=== PATIENT | female | born 1955 | race Hispanic/Latino ===

== ENCOUNTER 2018-08-30 20:47 | Emergency (ER) | payer BC ==
--- OUTSIDE RECORDS SUMMARY | 2018-08-30 20:50 | XMS REPORT ---
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
--- OUTSIDE RECORDS SUMMARY | 2018-08-30 20:50 | XMS REPORT ---
:1955 Author Organization [employer] Care Team Providers Name Role Phone Nichelle Chatman Provider Role Unavailable Allergies No Known Allergies Problems Problem Type Condition Code Onset Dates Condition Status Problem Hematochezia K92.1 Active Problem Family history of diabetes mellitus Z83.3 Active Problem Gastro-esophageal reflux disease K21.9 Active without esophagitis Problem Abnormal mammogram of left breast R92.8 [...]
--- OUTSIDE RECORDS SUMMARY | 2018-08-30 20:50 | XMS REPORT ---
:1955 Author Organization [employer]Works Care Team Providers Name Role Phone Nichelle Chatman Provider Role Unavailable Allergies, Adverse Reactions, Alerts Substance Reaction Event Type Iodine hives Drug Allergy Problems Problem Type Condition Code Onset Dates [...] E66.9 Active Problem History of transient ischemic Z86.73 Active attack Problem Hyperlipidemia E78.5 Active Assessment Swelling of lower extremity M79.89 Active Assessment History of DVT (deep vein Z86.718 Active thrombosis) Assessment Strep pharyngitis J02.0 Active Medications Medication Code Code Instructions Start End Status Dosage System Date Date Lipitor [facility] 58380931360 10 Active 1 EACH ONCE A DAY ORALLY Aspirin Adult [facility] [address]-14 Active not Low Dose defined Multivitamin [facility] 34253032285 - Orally Jul 13, Active not Adults 2018 defined Flonase [facility] 97707975221 50 MCG/ACT Active 2 spray in Nasally Once a each day nostril Amoxicillin [facility] 29804031455 875 MG Orally Mar 04, Mar 11, Active 1 tablet every 12 hrs 2017 2017 Lisinopril [facility] 96451466801 10 MG Active 1 EACH ONCE A DAY ORALLY Naproxen [facility] 70871476422 500 Orally Active 1 tablet every 12 hrs with food or milk as needed Results Name Result Date Reference Range Unit Abnormality Flag Rapid Strep FLU TEST ----B Neg [id number] ----A Neg [id number] Summary Purpose eClinicalWorks Submission
--- OUTSIDE RECORDS SUMMARY | 2018-08-30 20:50 | XMS REPORT ---
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
--- OUTSIDE RECORDS SUMMARY | 2018-08-30 20:50 | XMS REPORT ---
:1955 Author Organization [employer]ClinicalWorks Care Team Providers Name Role Phone Yesenia Chatmany Provider Role Unavailable Allergies, Adverse Reactions, Alerts Substance Reaction Event Type Iodine hives Drug Allergy Problems Problem Type Condition Code Onset Dates Condition Status Problem Gastro-esophageal reflux disease K21.9 Active without esophagitis Problem Hematochezia K92.1 Active Assessment Abnormal mammogram of left breast R92.8 Active Assessment Tenosynovitis of hand M65.9 Active Problem Osteoarthritis of spine with M47.22 Active radiculopathy, cervical region Problem History of transient ischemic attack Z86.73 Active Problem Abnormal mammogram of left breast R92.8 Active Problem Obesity E66.9 Active Problem Family history of diabetes mellitus Z83.3 Active Problem Hyperlipidemia E78.5 Active Problem Hypertension I10 Active Medications Medication Code Code Instructions Start End Status Dosage System Date Date Lisinopril [facility] 36614504385 10 MG Active 1 EACH ONCE A DAY ORALLY Aspirin Adult [facility] [address]-32 Active not Low Dose defined Lipitor [facility] 65498577070 10 Active 1 EACH ONCE A DAY ORALLY Lisinopril [facility] 89322417744 10 Active 1 EACH ONCE A DAY ORALLY Flonase [facility] 47897324828 50 MCG/ACT Active 2 spray in Nasally Once a each day nostril Multivitamin [facility] 32530049397 - Orally Jul 13, Active not Adults 2018 defined Lipitor [facility] 74252291237 10 MG Active 1 EACH ONCE A DAY ORALLY Naproxen ND 22192598804 500 MG Orally Feb 01Feb Active 1 tablet every 12 hrs 2017 30, with food 2018 or milk as needed Results No Known Results Summary Purpose eClinicalWorks Submission
--- OUTSIDE RECORDS SUMMARY | 2018-08-30 20:50 | XMS REPORT ---
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 Active radiculopathy, cervical region Problem Hyperlipidemia E78.5 Active Problem Hypertension I10 Active Problem Gastro-esophageal reflux disease K21.9 Active without esophagitis Problem Hematochezia K92.1 Active Medications Medication Code Code Instructions Start End Date Status Dosage System Date Lipitor [facility] 14818314060 10 MG Active 1 EACH ONCE A DAY ORALLY Aspirin Adult [facility] [address]-61 Active not Low Dose defined Multivitamin [facility] 25941507300 - Orally Jul 13, Active not Adults 2018 defined Lisinopril [facility] 25670698797 10 MG Active 1 EACH ONCE A DAY ORALLY Flonase [facility] 59863983397 50 MCG/ACT Active 2 spray Nasally Once a in each day nostril Etodolac [facility] 00110055851 200 MG Orally September Active 1 capsule every 8 hrs 2017 as needed with food Results Name Result Date Reference Range Unit Abnormality Flag X ray : Cervical spine w/obliques XR THORACIC SPINE 2 VIEWS Summary Purpose eClinicalWorks Submission
--- OUTSIDE RECORDS SUMMARY | 2018-08-30 20:50 | XMS REPORT ---
:1955 Author Organization eClinicalWorks Care Team Providers Name Role Phone Nichelle Chatman Provider Role Unavailable Allergies No Known Allergies Problems Problem Type Condition Code Onset Dates Condition Status Problem Hematochezia K92.1 Active Problem Family history of diabetes mellitus Z83.3 Active Problem Gastro-esophageal reflux disease K21.9 Active without esophagitis Assessment Abnormal finding on mammography R92.8 Active [...]
--- OUTSIDE RECORDS SUMMARY | 2018-08-30 20:50 | XMS REPORT ---
:1955 Author Organization eClinicalWorks Care Team Providers Name Role Phone Nihcelle Chatman Provider Role Unavailable Allergies No Known Allergies Problems Problem Type Condition Code Onset Dates Condition Status Problem Obesity E66.9 Active Problem Abnormal mammogram [...] Medications Results No Known Results Summary Purpose amSTATZinicalMinubo Submission
[2018-08-30] MEDS ORDERED: KETOROLAC 30 MG/ML INJ ONE (21:26)
[2018-08-30 21:49] LABS: Absolute Lymphocytes (CBC) 3.2 K/uL (0.7-4.9); Absolute Monocytes 0.7 K/uL (0.1-1.3); Absolute Neutrophil 4.4 K/uL (1.8-8.0); Basophils % 0.5 % (0-1.3); Eosinophils % 1.8 % (0-4.4); Hematocrit 40.1 % (36.0-45.0); Lymphocytes % 37.2 % (15.3-44.8); MPV 9.7 fL (7.6-11.3); Monocytes % 8.5 % (3.3-12.3); Protime INR 0.96; RBC Red Blood Cell Count 4.31 M/uL (3.86-4.86)
[2018-08-30 22:06] LABS: ALT/SGPT 29 U/L (12-78); AST/SGOT 24 U/L (15-37); Alkaline Phosphatase 92 U/L (45-117); BUN Blood Urea Nitrogen 16 mg/dL (7-18); Bicarbonate 31 mmol/L (21-32); Bilirubin Direct < 0.1 mg/dL (0-0.2); Bilirubin Total 0.3 mg/dL (0.2-1.0); Glucose Level 86 mg/dL (74-106); NT PRO-BNP 64 pg/mL (<125); Potassium 4.1 mmol/L (3.5-5.1); Protein, Total 7.5 g/dL (6.4-8.2); Sodium Level 144 mmol/L (136-145); Troponin (Emerg Dept Use Only) < 0.02 ng/mL (0.0-0.045)
--- NOTE | 2018-08-30 22:57 | ER ---
Nurse's Notes [facility] Name: Joan Atkins Age: 62 yrs Sex: Female : 1955 Arrival Date: 08/30/2018 Time: 20:50 Bed 5 Private MD: Diagnosis: Atypical Chest pain;Pain in left shoulder Presentation: 08/30 20:53 Presenting complaint: Patient states: "My arm has been hurting all day and it hurts in aj1 my chest and my back sometimes. Its been hurting for a couple of days, but today it is worse than before" Patient reports pain the the left arm that radiates to her chest and back. Patient also reports headache, denies SOB, nausea, palpitations. Transition of care: patient was not received from another setting of care. Onset of symptoms was August 28, 2018. Risk Assessment: Do you want to hurt yourself or someone else? Patient reports no desire to harm self or others. Initial Sepsis Screen: Does the patient meet any 2 criteria? No. Patient's initial sepsis screen is negative. Does the patient have a suspected source of infection? No. Patient's initial sepsis screen is negative. Care prior to arrival: None. 20:53 Method Of Arrival: Ambulatory aj1 20:53 Acuity: SOO 3 aj1 Triage Assessment: 20:57 Headache History: Denies prior headaches. General: Appears in no apparent distress. aj1 uncomfortable, Behavior is calm, cooperative, appropriate for age. Pain: Complains of pain in left arm Pain radiates to back and chest Pain currently is 9 out of 10 on a pain scale. Quality of pain is described as sharp, Pain began 2-3 days ago. Is intermittent, Also complains of no other associated symptoms. Neuro: Level of Consciousness is awake, alert, obeys commands, Oriented to person, place, time, situation. Cardiovascular: Reports chest pain, Denies nausea, palpitations, shortness of breath, Patient's skin is warm and dry. Respiratory: Airway is patent Respiratory effort is even, unlabored, Respiratory pattern is regular, symmetrical. Historical: - Allergies: 20:57 Iodine; aj1 - Home Meds: 20:57 atorvastatin oral oral [Active]; Lisinopril Oral [Active]; Aspirin Oral [Active]; aj1 - PMHx: 20:57 Hyperlipidemia; Hypertension; aj1 - PSHx: 20:57 Knee surgery; cataract surgery; aj1 - Immunization history:: Flu vaccine is up to date. - Social history:: Smoking status: Patient/guardian denies using tobacco. - Ebola Screening: : Patient denies travel to an Ebola-affected area in the 21 days before illness onset. Screenin:27 Abuse screen: Denies threats or abuse. Denies injuries from another. Nutritional rr5 screening: No deficits noted. Tuberculosis screening: No symptoms or risk factors identified. Fall Risk IV access (20 points). Total [place] Fall Scale indicates No Risk (0-24 pts). Assessment: 21:10 General: Appears in no apparent distress. uncomfortable, Behavior is calm, cooperative, rr5 appropriate for age. Pain: Complains of pain in chest Pain radiates to left arm Pain currently is 8 out of 10 on a pain scale. Quality of pain is described as aching, Pain began gradually, Is intermittent. 21:10 Neuro: Level of Consciousness is awake, alert, obeys commands, Oriented to person, rr5 place, time, situation, Appropriate for age. Cardiovascular: Reports chest pain, Capillary refill < 3 seconds Patient's skin is warm and dry. Respiratory: Airway is patent Respiratory effort is even, unlabored, Respiratory pattern is regular, symmetrical. GI: No signs and/or symptoms were reported involving the gastrointestinal system. : No signs and/or symptoms were reported regarding the genitourinary system. EENT: No signs and/or symptoms were reported regarding the EENT system. Derm: Skin temperature is warm. Musculoskeletal: Capillary refill < 3 seconds, Range of motion: intact in all extremities. 22:00 Reassessment: Patient appears in no apparent distress at this time. Patient is alert, rr5 oriented x 3, equal unlabored respirations, skin warm/dry/pink. Patient states feeling better. Patient states symptoms have improved. 23:05 Reassessment: Patient appears in no apparent distress at this time. Patient is alert, rr5 oriented x 3, equal unlabored respirations, skin warm/dry/pink. discharge instruction given and intrsucted without complaints made. pain score of 1/10 Patient states feeling better. Patient states symptoms have improved. Vital Signs: 20:57 BP 154 / 86; Pulse 88; Resp 18; Temp 97.8; Pulse Ox 98% on R/A; Height 5 ft. 5 in. aj1 (165.10 cm) (R); Pain 9/10; 20:57 Weight 76.2 kg (R); aj1 21:30 BP 135 / 71; Pulse 80; Resp 17; Pulse Ox 99% ; rr5 22:30 BP 119 / 71; Pulse 71; Resp 17; Pulse Ox 99% ; rr5 23:05 BP 116 / 71; Pulse 75; Resp 16; Pulse Ox 99% ; Pain 1/10; rr5 20:57 Body Mass Index 27.96 (76.20 kg, 165.10 cm) aj1 ED Course: 20:50 Patient arrived in ED. mr 20:56 Triage completed. aj1 20:57 Arm band placed on Patient placed in an exam room. aj1 21:00 Patient has correct armband on for positive identification. Placed in gown. Bed in low rr5 position. Call light in reach. Side rails up X2. camelid fiber sorter on. Pulse ox on. NIBP on. 21:02 Stoney Polanco PA is PHCP. jr8 21:02 Timothy Kaur MD is Attending Physician. jr8 21:20 XRAY Chest (1 view) In Process Unspecified. EDMS 21:20 Inserted saline lock: 22 gauge in right forearm, using aseptic technique. Blood rr5 collected. 21:26 Trey Mejia, MAXIMINO is Primary Nurse. rr5 23:17 No provider procedures requiring assistance completed. IV discontinued, intact, rr5 bleeding controlled, No redness/swelling at site. Pressure dressing applied. Administered Medications: 21:20 Drug: TORadol 30 mg Route: IVP; Site: right forearm; rr5 23:10 Follow up: Response: No adverse reaction; Marked relief of symptoms rr5 Outcome: 22:56 Discharge ordered by . jr8 23:17 Discharged to home ambulatory. rr5 23:17 Condition: stable 23:17 Discharge instructions given to patient, Instructed on discharge instructions, follow up and referral plans. medication usage, Demonstrated understanding of instructions, follow-up care, medications, Prescriptions given X 2. 23:18 Patient left the ED. rr5 Signatures: Dispatcher [employer] EDAZ Rhianna Bolaños RN RN aj1 SantnaaBelén mr Stoney Polanco PA PA jr8 Mejia, Trey, RN RN rr5
--- NOTE | 2018-08-30 22:57 | EDPHYS ---
Physician Documentation [facility] Name: Joan Atkins Age: 62 yrs Sex: Female : 1955 Arrival Date: 08/30/2018 Time: 20:50 Bed 5 Private MD: ED Physician Timothy Kaur HPI: 08/30 21:32 This 62 yrs old Female presents to ER via Ambulatory with complaints of Arm jr8 Pain, Headache. 21:32 Patient stated that she started to have left arm pain radiating down to chest and back jr8 for the past 2 days. No relief at home with OTC medications. Has headache now as well. Denies fevers or shortness of breath. Denies trauma . Severity of symptoms: At their worst the symptoms were moderate in the emergency department the symptoms are unchanged. The patient has not experienced similar symptoms in the past. The patient has not recently seen a physician. Historical: - Allergies: 20:57 Iodine; aj1 - Home Meds: 20:57 atorvastatin oral oral [Active]; Lisinopril Oral [Active]; Aspirin Oral [Active]; aj1 - PMHx: 20:57 Hyperlipidemia; Hypertension; aj1 - PSHx: 20:57 Knee surgery; cataract surgery; aj1 - Immunization history:: Flu vaccine is up to date. - Social history:: Smoking status: Patient/guardian denies using tobacco. - Ebola Screening: : Patient denies travel to an Ebola-affected area in the 21 days before illness onset. ROS: 21:32 Eyes: Negative for injury, pain, redness, and discharge, ENT: Negative for injury, jr8 pain, and discharge, Neck: Negative for injury, pain, and swelling, Respiratory: Negative for shortness of breath, cough, wheezing, and pleuritic chest pain, Abdomen/GI: Negative for abdominal pain, nausea, vomiting, diarrhea, and constipation, Back: Negative for injury and pain, Skin: Negative for injury, rash, and discoloration. 21:32 Cardiovascular: Positive for chest pain, Negative for edema, orthopnea, palpitations, paroxysmal nocturnal dyspnea. 21:32 MS/extremity: Positive for pain, of the left arm. 21:32 Neuro: Positive for headache, Negative for altered mental status, dizziness, gait disturbance, hearing loss, loss of consciousness, numbness, seizure activity, speech changes, syncope, near syncope, tingling, tinnitus, tremor, visual changes, weakness. Exam: 21:32 Head/Face: Normocephalic, atraumatic. Eyes: Pupils equal round and reactive to light, jr8 extra-ocular motions intact. Lids and lashes normal. Conjunctiva and sclera are non-icteric and not injected. Cornea within normal limits. Periorbital areas with no swelling, redness, or edema. ENT: Nares patent. No nasal discharge, no septal abnormalities noted. Tympanic membranes are normal and external auditory canals are clear. Oropharynx with no redness, swelling, or masses, exudates, or evidence of obstruction, uvula midline. Mucous membranes moist. Neck: Trachea midline, no thyromegaly or masses palpated, and no cervical lymphadenopathy. Supple, full range of motion without nuchal rigidity, or vertebral point tenderness. No Meningismus. Chest/axilla: Normal chest wall appearance and motion. Nontender with no deformity. No lesions are appreciated. Cardiovascular: Regular rate and rhythm with a normal S1 and S2. No gallops, murmurs, or rubs. Normal PMI, no JVD. No pulse deficits. Respiratory: Lungs have equal breath sounds bilaterally, clear to auscultation and percussion. No rales, rhonchi or wheezes noted. No increased work of breathing, no retractions or nasal flaring. Abdomen/GI: Soft, non-tender, with normal bowel sounds. No distension or tympany. No guarding or rebound. No evidence of tenderness throughout. Back: No spinal tenderness. No costovertebral tenderness. Full range of motion. Mild pain to palpation of trapezious and scapular region that only partially reporduces pain Skin: Warm, dry with normal turgor. Normal color with no rashes, no lesions, and no evidence of cellulitis. MS/ Extremity: Pulses equal, no cyanosis. Neurovascular intact. Full, normal range of motion. Neuro: Awake and alert, GCS 15, oriented to person, place, time, and situation. Cranial nerves II-XII grossly intact. Motor strength 5/5 in all extremities. Sensory grossly intact. Cerebellar exam normal. Normal gait. Vital Signs: 20:57 BP 154 / 86; Pulse 88; Resp 18; Temp 97.8; Pulse Ox 98% on R/A; Height 5 ft. 5 in. aj1 (165.10 cm) (R); Pain 9/10; 20:57 Weight 76.2 kg (R); aj1 21:30 BP 135 / 71; Pulse 80; Resp 17; Pulse Ox 99% ; rr5 22:30 BP 119 / 71; Pulse 71; Resp 17; Pulse Ox 99% ; rr5 23:05 BP 116 / 71; Pulse 75; Resp 16; Pulse Ox 99% ; Pain 1/10; rr5 20:57 Body Mass Index 27.96 (76.20 kg, 165.10 cm) aj1 MDM: 21:02 Patient medically screened. jr8 22:48 Data reviewed: vital signs, nurses notes, lab test result(s), EKG, radiologic studies, jr8 plain films. Data interpreted: personnel monitor: rate is 70 beats/min, rhythm is normal sinus rhythm, with no ectopy, Interpretation: normal rate, Pulse oximetry: on room air is 99 %. Test interpretation: by ED physician or midlevel provider: plain radiologic studies, No acute Thoracic process noted . Counseling: I had a detailed discussion with the patient and/or guardian regarding: the historical points, exam findings, and any diagnostic results supporting the discharge/admit diagnosis, lab results, radiology results, the need for outpatient follow up, a family practitioner, to return to the emergency department if symptoms worsen or persist or if there are any questions or concerns that arise at home. Response to treatment: the patient's symptoms have markedly improved after treatment. 08/30 21:11 Order name: Basic Metabolic Panel; Complete Time: 22:24 [facility] 08/30 21:11 Order name: CBC with Diff; Complete Time: 21:56 [facility] 08/30 21:11 Order name: LFT's; Complete Time: 22:24 [facility] 08/30 21:11 Order name: Magnesium; Complete Time: 22:24 [facility] 08/30 21:11 Order name: NT PRO-BNP; Complete Time: 22:24 [facility] 08/30 21:11 Order name: PT-INR; Complete Time: 21:56 [facility] 08/30 21:11 Order name: Troponin (emerg Dept Use Only); Complete Time: 22:24 [facility] 08/30 21:11 Order name: XRAY Chest (1 view) [facility] 08/30 21:11 Order name: Cardiac monitoring; Complete Time: 21:27 [facility] 08/30 21:11 Order name: EKG - Nurse/Tech; Complete Time: 08/30 21:11 Order name: IV Saline Lock; Complete Time: 08/30 21:11 Order name: Labs collected and sent; Complete Time: 08/30 21:12 Order name: O2 Per Protocol; Complete Time: [facility] 08/30 21:12 Order name: O2 Sat Monitoring; Complete Time: Administered Medications: 21:20 Drug: TORadol 30 mg Route: IVP; Site: right forearm; rr5 23:10 Follow up: Response: No adverse reaction; Marked relief of symptoms rr5 Disposition: 08/30/18 22:56 Discharged to Home. Impression: Atypical Chest pain, Pain in left shoulder. - Condition is Stable. - Discharge Instructions: Joint Pain, Nonspecific Chest Pain, Shoulder Pain. - Prescriptions for Robaxin 500 mg Oral Tablet - take 2 tablet by ORAL route every 6 hours As needed; 40 tablet. Tramadol 50 mg Oral Tablet - take 1 tablet by ORAL route every 8 hours as needed; 12 tablet. - Medication Reconciliation Form, Thank You Letter, Antibiotic Education, Prescription Opioid Use form. - Follow up: Private Physician; When: 2 - 3 days; Reason: Recheck today's complaints, Continuance of care, Re-evaluation by your physician. - Problem is new. - Symptoms have improved. Addendum: 09/02/2018 11:13 Co-signature as Attending Physician, Timothy Kaur MD I agree with the assessment and c carrasco plan of care. Signatures: Dispatcher [employer] Rhianna Wisdom RN RN aj1 Timothy Kaur MD MD cha Roszak, Josh, PA PA jr8 Trey Mejia RN RN rr5 Corrections: (The following items were deleted from the chart) 08/30 23:18 22:56 08/30/2018 22:56 Discharged to Home. Impression: Atypical Chest pain; Pain in rr5 left shoulder. Condition is Stable. Forms are Medication Reconciliation Form, Thank You Letter, Antibiotic Education, Prescription Opioid Use. Follow up: Private Physician; When: 2 - 3 days; Reason: Recheck today's complaints, Continuance of care, Re-evaluation by your physician. Problem is new. Symptoms have improved. jr8
[2018-08-30 23:32] VITALS: TEMP 97.8
[2018-08-30 23:33] VITALS: O2SAT 99
[2018-08-30 23:36] VITALS: BP 116/71
--- NOTE | 2018-08-31 10:21 | RAD REPORT ---
EXAM DESCRIPTION: RAD - Chest Single View - 08/30/2018 9:20 pm CLINICAL HISTORY: CHEST PAIN Chest pain. COMPARISON: CHEST SINGLE VIEW dated 08/21/2014 FINDINGS: Portable technique limits examination quality. Mild interstitial pulmonary edema is seen. The heart is normal in size. No displaced fractures. IMPRESSION: Mild interstitial pulmonary edema.
== END 2018-08-30 23:18 | disposition home or self-care (01) ==
LOC: ER 20:47
DX: R07.89 Other chest pain (principal); I10 Essential (primary) hypertension; E78.5 Hyperlipidemia, unspecified; Z79.82 Long term (current) use of aspirin; Z91.048 Other nonmedicinal substance allergy status
CPT/HCPCS: 36415; 71045; 80048; 80076; 83735; 83880; 84484; 85025; 85610; 96374; 99284

== ENCOUNTER 2022-05-05 07:11 | Emergency (ER) | payer BC, OTHER ==
--- OUTSIDE RECORDS SUMMARY | 2022-05-05 07:15 | XMS REPORT | Continuity of Care Document ---
:1955 Author Organization [facility] t Address [address] [place] [address] Care Team Providers Name Role Phone Meagan Morris Attending Clinician Unavailable Tash Chatman Attending Clinician Unavailable Payers Payer Name Policy Type Policy Number Effective Date Expiration Date khang [facility] [id number] 2022 (MEDICARE 00:00:00 REPLACEMENT HMO) Problems Condition Condition Condition Status Onset Resolution Last Treating Co mments Source Name Details Category Date Date Treatment Clinician Date FH: Family Problem Common Diabetes history of Spir it mellitus diabetes - [facility] mellitus [facility] Hypertensi Hypertensi Problem C ommon on on [facility] Obesity Obesity Problem Common [facility] Hematochez Hematochez Problem C ommon ia ia [facility] Hyperlipid Hyperlipid Problem C ommon emia emia [facility] History of History of Problem C ommon transient transient Spir it ischemic ischemic - [facility] attack attack [facility] Gastro-eso Gastro-eso Problem C ommon phageal phageal [facility] reflux reflux - [facility] disease disease [facility] esophagiti esophagiti Me dical [facility] [id number] Abnormal Problem Comm on mammogram [facility] of left [facility] breast [facility] Body mass Adult BMI Problem Com mon index 32.0-32.9 [facility] 30.00 to kg/sq [facility] 34.99 [facility] [id number] Bloating Problem Comm on symptom [facility] [id number] Osteoarthr Problem Co mmon itis of [facility] spine with - [facility] radiculopa [facility] cervical [facility] [id number] Exposure Problem Comm on to the flu [facility] [id number] Exposure Problem Comm on to Spirit pneumonia [facility] [id number] Fever and Problem Com mon chills [facility] [id number] Primary Problem Comm on osteoarthr [facility] itis of [facility] right knee [facility] Essential Essential Problem Com mon hypertensi (primary) Spi rit on hypertensi - [facility]I on [facility] [id number] BMI Problem Common 30.0-30.9, [facility] adult [facility] Allergies, Adverse Reactions, Alerts Allergy Allergy Status Severity Reaction(s) Onset Inactive Treating Comm ents Source Name Type Date Date Clinician 463 Drug Active hives Common allergy [facility] Social History Social Habit Start Date Stop Date Quantity Comments Source Sex Assigned At Com mon [facility] History of Tobacco Use Co mmon [facility] Smoking Status Start Date Stop Date Source Never Smoker Common [facility] Medications Ordered Filled Start Stop Current Ordering Indication Dosage Frequency Signature Comments Components Source Medication Medication Date Date Medication? Clinician (SIG) Name Name Oseltamivir Oseltamivir Yes Tash 1 capsule Common Phosphate Phosphate 2-11 [facility] Spir it 00:00: - [facility] 00 [facility] Lisinopril Lisinopril Yes Tash take 1 Common [facility] tablet by Spirit mouth - CHI every day. [facility] Atorvastati Atorvastati Yes Tash TAKE 1 Common n Calcium n Calcium Rogers TABLET BY Spirit MOUTH ONCE - CHI A DAY [facility] Lisinopril Lisinopril No QD Lisinopril 20 MG 20 MG 20 MG Atorvastati Atorvastati No Atorvastat n Calcium n Calcium in Calcium 10 MG 10 MG 10 MG Lisinopril Lisinopril No QD Lisinopril 20 MG 20 MG 20 MG Atorvastati Atorvastati No Atorvastat n Calcium n Calcium in Calcium 10 MG 10 MG 10 MG Lisinopril Lisinopril No QD Lisinopril 20 MG 20 MG 20 MG Atorvastati Atorvastati No Atorvastat n Calcium n Calcium in Calcium 10 MG 10 MG 10 MG Lisinopril Lisinopril No Lisinopril 10 10 10 Atorvastati Atorvastati No Atorvastat n Calcium n Calcium in Calcium 10 MG 10 MG 10 MG Lisinopril Lisinopril No QD Lisinopril 20 MG 20 MG 20 MG Atorvastati Atorvastati No Atorvastat n Calcium n Calcium in Calcium 10 MG 10 MG 10 MG Lisinopril Lisinopril No QD Lisinopril 20 MG 20 MG 20 MG Atorvastati Atorvastati No Atorvastat n Calcium n Calcium in Calcium 10 MG 10 MG 10 MG Lisinopril Lisinopril No QD Lisinopril 20 MG 20 MG 20 MG Atorvastati Atorvastati No Atorvastat n Calcium n Calcium in Calcium 10 MG 10 MG 10 MG Lisinopril Lisinopril No QD Lisinopril 20 MG 20 MG 20 MG Atorvastati Atorvastati No Atorvastat n Calcium n Calcium in Calcium 10 MG 10 MG 10 MG Aspirin Aspirin 2020- No Tash 1 tablet Com mon Adult Low Adult Low -17 [facility] Spi rit Dose Dose 00:00 - CHI :00 [facility] Immunizations Ordered Immunization Filled Immunization Date Status Commen ts Source Name Name FLUZONE HIGH DOSE FLUZONE HIGH DOSE 2022-03-29 Completed Common [facility] OVER 65 OVER 65 09:29:00 - [facility] Flucelvax - Flucelvax - 2018-04-17 Completed Common Spiri t multidose vial multidose vial 14:28:00 - [facility] Flucelvax - Flucelvax - 2018-04-17 Completed Common Spiri t multidose vial multidose vial 14:28:00 - [facility] Flucelvax - Flucelvax - 2018-04-17 Completed Common Spiri t multidose vial multidose vial 14:28:00 - [facility] Flucelvax - Flucelvax - 2018-04-17 Completed Common Spiri t multidose vial multidose vial 14:28:00 - [facility] Flucelvax - Flucelvax - 2018-04-17 Completed Common Spiri t multidose vial multidose vial 14:28:00 - [facility] Flucelvax - Flucelvax - 2018-04-17 Completed Common Spiri t multidose vial multidose vial 14:28:00 - [facility] Flucelvax - Flucelvax - 2018-04-17 Completed Common Spiri t multidose vial multidose vial 14:28:00 - [facility] Flucelvax - Flucelvax - 2018-04-17 Completed Common Spiri t multidose vial multidose vial 14:28:00 - [facility] Vital Signs Vital Name Observation Time Observation Value Comments Source height 2022-02-24 10:40:00 61 [in_i] [facility] weight 2022-02-24 10:40:00 158.2 [lb_av] [facility] temperature 2022-02-24 10:40:00 98.6 [degF] [facility] bmi 2022-02-24 10:40:00 29.89 kg/m2 [facility] oximetry 2022-02-24 10:40:00 99 % [facility] respiratory rate 2022-02-24 10:40:00 16 /min Comm on [facility] blood pressure 2022-02-24 10:40:00 136 mm[Hg] Common [facility] - systolic [facility] blood pressure 2022-02-24 10:40:00 82 mm[Hg] Common [facility] - diastolic [facility] blood pressure 2022-02-24 10:00:00 136 mm[Hg] Common [facility] - systolic [facility] blood pressure 2022-02-24 10:00:00 82 mm[Hg] Common [facility] - diastolic [facility] height 2022-02-24 10:00:00 61 [in_i] [facility] weight 2022-02-24 10:00:00 158.2 [lb_av] [facility] temperature 2022-02-24 10:00:00 98.6 [degF] Common S pirit [facility] bmi 2022-02-24 10:00:00 29.89 kg/m2 Common [facility] oximetry 2022-02-24 10:00:00 99 % Common S [facility] respiratory rate 2022-02-24 10:00:00 16 /min Comm on [facility] Procedures This patient has no known procedures. Encounters Start End Encounter Admission Attending Care Care Encounter Source Date/Time Date/Time Type Type Clinicians Facility Department ID 2021-12-28 Outpatient Morris, STLMLC STLMLC [id number] Common 08:17:00 Meagan [facility] 2021-12-26 Outpatient Morris, STLMLC STLMLC [id number] Common 11:41:00 Meagan [facility] 2021-12-16 Outpatient Morris, STLMLC STLMLC [id number] Common 10:07:00 Meagan [facility] 2021-06-29 Outpatient Rogers, STLMLC STLMLC [id number] Common 11:06:56 Tash [id number] [facility] 2022-04-17 2022-04-17 Outpatient DMG DMG [id number] [facility] 00:00:00 00:00:00 [id number] [facility] 2022-03-29 2022-03-29 OFFICE STLMLC STLMLC [id number] Co mmon 00:00:00 00:00:00 VISIT [facility] PT - CHI LEVEL [address] [facility] 2022-02-24 2022-02-24 (MCR WELL) STLMLC STLMLC [id number] Common 00:00:00 00:00:00 Medicare Spiri t Wellness [facility] 2022-02-24 2022-02-24 (TEL) STLMLC STLMLC [id number] Co mmon 00:00:00 00:00:00 [facility] 2022-02-24 2022-02-24 OFFICE STLMLC STLMLC [id number] Co mmon 00:00:00 00:00:00 VISIT Spirit ESTAB PT - CHI LEVEL 4 [facility] 2021-12-22 2021-12-22 (TEL) STLMLC STLMLC [id number] Co mmon 00:00:00 00:00:00 [facility] 2020-02-26 2020-02-26 Outpatient STLMLC STLMLC [id number] Common 00:00:00 00:00:00 [facility] 2019-07-31 2019-07-31 [facility] [id number] Common 08:00:00 08:00:[address] [facility] 2019-07-15 2019-07-15 [facility] [id number] Common 15:00:00 15:00:[address] [facility] 2019-02-05 2019-02-05 [facility] [id number] Common 09:32:00 09:32:[address] [facility] 2019-01-31 2019-01-31 [facility] [id number] Common 15:24:00 15:24:[address] [facility] 2019-01-28 2019-01-28 [facility] [id number] Common 08:00:00 08:00:[address] [facility] 2018-09-24 2018-09-24 [facility] [id number] Common 08:30:00 08:30:[address] [facility] 2018-07-12 2018-07-12 [facility] [id number] Common 09:10:00 09:10:[address] [facility] 2018-03-20 2018-03-20 [facility] [id number] Common 15:38:00 15:38:[address] [facility] 2018-03-04 2018-03-04 [facility] [id number] Common 14:49:00 14:49:[address] [facility] 2018-03-04 2018-03-04 [facility] [id number] Common 09:00:00 09:00:[address] [facility] 2018-02-14 2018-02-14 [facility] [id number] Common 08:42:00 08:42:[address] [facility] 2018-02-05 2018-02-05 [facility] [id number] Common 11:31:00 11:31:[address] [facility] 2018-02-01 2018-02-01 [facility] [id number] Common 09:00:00 09:00:[address] [facility] 2018-01-24 2018-01-24 [facility] [id number] Common 11:39:00 11:39:[address] [facility] 2017-10-04 2017-10-04 [facility] [id number] Common 15:15:00 15:15:[address] [facility] 2017-09-12 2017-09-12 [facility] [id number] Common 14:06:00 14:06:[address] [facility] 2017-09-07 2017-09-07 [facility] [id number] Common 11:00:00 11:00:[address] [facility] Results This patient has no known results.
[2022-05-05 07:36] LABS: Urine Blood 2+ (Negative); Urine Glucose Negative (Negative); Urine Protein Negative (Negative); Urine Specific Gravity 1.015 (1.005-1.030); Urine pH 5.5 (5.0-7.0)
[2022-05-05 08:27] LABS: Absolute Lymphocytes (CBC) 1.3 K/uL (0.7-4.9); Hematocrit 41.5 % (36.0-45.0); Lymphocytes % 27.7 % (15.3-44.8); MCV 91.5 fL (80-100); RBC Red Blood Cell Count 4.54 M/uL (3.86-4.86)
[2022-05-05 08:33] LABS: Urine Bacteria <20 /HPF (<20); Urine Mucus Slight /HPF (None Seen); Urine RBC <5 /HPF (None Seen)
[2022-05-05 08:40] LABS: Albumin 3.9 g/dL (3.4-5.0); Bilirubin Total 0.9 mg/dL (0.2-1.0); Potassium 4.1 mmol/L (3.5-5.1); Protein, Total 7.8 g/dL (6.4-8.2)
--- NOTE | 2022-05-05 09:06 | RAD REPORT ---
EXAM DESCRIPTION: CTAbdomen Pelvis Wo Contrast - 05/05/2022 8:23 am CLINICAL HISTORY: lower abd pain COMPARISON: No comparisons TECHNIQUE: CT of the abdomen and pelvis was performed without IV contrast. All CT scans are performed using dose optimization technique as appropriate and may include automated exposure control or mA/KV adjustment according to patient size. FINDINGS: Lower chest: No acute abnormality. Liver: No acute abnormality or suspicious lesions. Biliary: No biliary ductal dilatation. Stomach: No significant focal abnormality. Duodenum: No significant focal abnormality. Pancreas: No significant abnormality. Spleen: No significant abnormality. Adrenal: No suspicious lesions. Kidney/ureter: No hydronephrosis. No renal calculi. Retroperitoneum: No retroperitoneal adenopathy. Vascular: No aneurysm. Bowel: No significant focal abnormality. Normal appendix. Peritoneum: No ascites or free air. Bladder: Grossly unremarkable. Reproductive: No adnexal masses. Bones: No acute fracture. Disc height loss at L5-S1. Other: n/a IMPRESSION: No acute intra-abdominal or pelvic finding. Normal appendix.
--- NOTE | 2022-05-05 09:09 | ER ---
Nurse's Notes [facility] Name: Joan Atkins Age: 66 yrs Sex: Female : 1955 Arrival Date: 05/05/2022 Time: 07:16 Bed 6 Private MD: Diagnosis: Lower abdominal pain, unspecified Presentation: 05/05 07:27 Chief complaint: Patient states: BLQ ABD PAIN x4 DAYS, DENIES bp NAUSEA/VOMITING/DIARRHEA/FEVER. Coronavirus screen: At this time, the client does not indicate any symptoms associated with coronavirus-19. Ebola Screen: No symptoms or risks identified at this time. Initial Sepsis Screen: Does the patient meet any 2 criteria? No. Patient's initial sepsis screen is negative. Does the patient have a suspected source of infection? No. Patient's initial sepsis screen is negative. Risk Assessment: Do you want to hurt yourself or someone else? Patient reports no desire to harm self or others. Onset of symptoms is unknown. 07:27 Method Of Arrival: Ambulatory bp 07:27 Acuity: SOO 3 bp Triage Assessment: 07:29 General: Appears in no apparent distress. Behavior is cooperative, appropriate for age, bp anxious. Pain: Complains of pain in right lower quadrant and left lower quadrant. EENT: No deficits noted. Neuro: No deficits noted. Cardiovascular: No deficits noted. Respiratory: No deficits noted. GI: Abdomen is non-distended, Reports lower abdominal pain. : Denies burning with urination. Derm: No deficits noted. Musculoskeletal: No deficits noted. Historical: - Allergies: 07:29 Iodine; bp - Home Meds: 07:29 Aspirin Oral [Active]; atorvastatin Oral [Active]; lisinopril Oral [Active]; bp - PMHx: 07:29 Hyperlipidemia; Hypertension; bp - Immunization history:: Adult Immunizations up to date. - Social history:: Smoking status: Patient denies any tobacco usage or history of. - Family history:: not pertinent. - Hospitalizations: : No recent hospitalization is reported. Screenin:31 Abuse screen: Denies threats or abuse. Denies injuries from another. Nutritional bp screening: No deficits noted. Tuberculosis screening: No symptoms or risk factors identified. Fall Risk None identified. Assessment: 07:31 General: SEE TRIAGE NOTE. bp 08:30 Reassessment: No changes from previously documented assessment. Patient and/or family bp updated on plan of care and expected duration. Pain level reassessed. PT RETURNED FROM CT. 09:18 Reassessment: PT DC HOME AMBULATORY. bp Vital Signs: 07:27 BP 170 / 83; Pulse 75; Resp 16; Temp 98; Pulse Ox 98% ; Weight 72.57 kg; Height 5 ft. 1 bp in. (154.94 cm); 08:30 BP 137 / 65; Pulse 61; Resp 16; Pulse Ox 100% ; bp 09:18 BP 127 / 64; Pulse 74; Resp 16; Pulse Ox 98% ; bp 07:27 Body Mass Index 30.23 (72.57 kg, 154.94 cm) bp ED Course: 07:16 Patient arrived in ED. rg4 07:17 Rey Ortiz MD is Attending Physician. rn 07:27 Derek Mar, MAXIMINO is Primary Nurse. bp 07:28 Triage completed. bp 07:29 Arm band placed on. bp 07:31 Patient has correct armband on for positive identification. Bed in low position. Call bp light in reach. Side rails up X2. 07:45 Inserted saline lock: 20 gauge in right wrist, using aseptic technique. Blood collected.bp 07:50 Warm blanket given. Pulse ox on. NIBP on. mm9 07:50 Urine collected: clean catch specimen, cloudy. mm9 08:19 Lab(s) recollected, by me, sent to lab. mm9 08:24 CT Abd/Pelvis - Without Contrast In Process Unspecified. EDMS 09:19 No provider procedures requiring assistance completed. IV discontinued, intact, bp bleeding controlled, No redness/swelling at site. Pressure dressing applied. Administered Medications: No medications were administered Medication: 07:31 VIS not applicable for this client. bp Outcome: 09:08 Discharge ordered by . rn 09:19 Discharged to home ambulatory. bp 09:19 Condition: stable 09:19 Discharge instructions given to patient, Instructed on discharge instructions, follow up and referral plans. Demonstrated understanding of instructions, follow-up care. 09:20 Patient left the ED. bp Signatures: Dispatcher [employer] EDMS Rey Ortiz MD MD rn Garcia, Rubi rg4 Derek Mar, Jossie Rutherford RN mm9
--- NOTE | 2022-05-05 09:09 | EDPHYS ---
Physician Documentation [facility] Name: Joan Atkins Age: 66 yrs Sex: Female : 1955 Arrival Date: 05/05/2022 Time: 07:16 Bed 6 Private MD: ED Physician Rey Ortiz HPI: 05/05 07:37 This 66 yrs old Female presents to ER via Ambulatory with complaints of rn Abdominal Pain. 07:37 The patient presents with abdominal pain in the lower abdomen. Onset: The rn symptoms/episode began/occurred 3 day(s) ago. The symptoms do not radiate. Associated signs and symptoms: Pertinent negatives: nausea and vomiting, blood in stools, chest pain, constipation, diarrhea, dysuria, fever, hematuria. The symptoms are described as dull, intermittent. Modifying factors: The symptoms are alleviated by nothing, the symptoms are aggravated by nothing. Severity of pain: At its worst the pain was mild in the emergency department the pain is unchanged. The patient has not experienced similar symptoms in the past. The patient has not recently seen a physician. Pt reports 3-4 days of lower abd pain, no vomiting/diarrhea/urinary symptoms. Has not had this before. Tried to get in with pcp and unable to so came in for evaluation. NO fever. . Historical: - Allergies: 07:29 Iodine; bp - Home Meds: 07:29 Aspirin Oral [Active]; atorvastatin Oral [Active]; lisinopril Oral [Active]; bp - PMHx: 07:29 Hyperlipidemia; Hypertension; bp - Immunization history:: Adult Immunizations up to date. - Social history:: Smoking status: Patient denies any tobacco usage or history of. - Family history:: not pertinent. - Hospitalizations: : No recent hospitalization is reported. ROS: 07:37 Constitutional: Negative for fever, chills, and weight loss, Eyes: Negative for injury, rn pain, redness, and discharge, Neck: Negative for injury, pain, and swelling, Cardiovascular: Negative for chest pain, palpitations, and edema, Respiratory: Negative for shortness of breath, cough, wheezing, and pleuritic chest pain, Abdomen/GI: Negative for nausea, vomiting, diarrhea, and constipation, Back: Negative for injury and pain, MS/Extremity: Negative for injury and deformity, Skin: Negative for injury, rash, and discoloration, Neuro: Negative for headache, weakness, numbness, tingling, and seizure. Exam: 07:37 Constitutional: This is a well developed, well nourished patient who is awake, alert, rn and in no acute distress. Ambulatory to room without assistance. Head/Face: Normocephalic, atraumatic. Cardiovascular: Regular rate and rhythm. No pulse deficits. Respiratory: No increased work of breathing, no retractions or nasal flaring. Abdomen/GI: Soft, no masses, no focal tenderness Skin: Warm, dry MS/ Extremity: Pulses equal, no cyanosis. Neuro: Awake and alert, GCS 15 Vital Signs: 07:27 BP 170 / 83; Pulse 75; Resp 16; Temp 98; Pulse Ox 98% ; Weight 72.57 kg; Height 5 ft. 1 bp in. (154.94 cm); 08:30 BP 137 / 65; Pulse 61; Resp 16; Pulse Ox 100% ; bp 09:18 BP 127 / 64; Pulse 74; Resp 16; Pulse Ox 98% ; bp 07:27 Body Mass Index 30.23 (72.57 kg, 154.94 cm) bp MDM: 07:17 Patient medically screened. rn 09:07 Differential diagnosis: appendicitis, bowel obstruction, diverticulitis, non-specific rn abd pain, Ureterolithiasis, urinary tract infection. Data reviewed: vital signs, nurses notes, lab test result(s), radiologic studies, CT scan, and as a result, I will discharge patient. Counseling: I had a detailed discussion with the patient and/or guardian regarding: the historical points, exam findings, and any diagnostic results supporting the discharge/admit diagnosis, lab results, radiology results, the need for outpatient follow up, to return to the emergency department if symptoms worsen or persist or if there are any questions or concerns that arise at home. Special discussion: Based on the patient's Hx, exam, and Dx evaluation, there is no indication for emergent surgery or inpatient Tx. It is understood by the patient/guardian that if the Sx's persist or worsen they need to return immediately for re-evaluation. I discussed with the patient/guardian in detail that at this point there is no indication for admission to the hospital. It is understood, however, that if the symptoms persist or worsen the patient needs to return immediately for re-evaluation. 05/05 07:31 Order name: CBC with Diff; Complete Time: 09:07 rn 05/05 07:31 Order name: CMP; Complete Time: 09:07 rn 05/05 07:31 Order name: Lipase; Complete Time: 09:07 rn 05/05 07:31 Order name: Urine Microscopic Only; Complete Time: 09:07 rn 05/05 07:36 Order name: Urine Dipstick-Ancillary; Complete Time: 08:17 EDWV 05/05 08:38 Order name: Urine Culture EDWV 05/05 07:31 Order name: CT Abd/Pelvis - Without Contrast; Complete Time: 09:07 rn 05/05 07:31 Order name: IV Saline Lock; Complete Time: 07:44 rn 05/05 07:31 Order name: Labs collected and sent; Complete Time: 07:45 rn 05/05 07:31 Order name: Urine Dipstick-Ancillary (obtain specimen); Complete Time: 07:45 rn 05/05 08:03 Order name: Labs - recollect needed: recollect lavender and light green / hemolyzed by tal Farley; Complete Time: 08:21 Administered Medications: No medications were administered Disposition Summary: 05/05/22 09:08 Discharge Ordered Location: Home rn Problem: new rn Symptoms: are unchanged rn Condition: Stable rn Diagnosis - Lower abdominal pain, unspecified rn Followup: rn - With: Private Physician - When: As needed - Reason: Recheck today's complaints, Re-evaluation by your physician Discharge Instructions: - Discharge Summary Sheet rn - Abdominal Pain, Adult rn Forms: - Medication Reconciliation Form rn - Thank You Letter rn - Antibiotic western felt hat blocker - Prescription Opioid Use rn Signatures: Dispatcher [employer] Rey Davis MD MD rn Peltier, Brian RN Terese Vegas
[2022-05-05 09:34] VITALS: TEMP 98
[2022-05-05 09:44] VITALS: BP 127/64; O2SAT 98
== END 2022-05-05 09:20 | disposition home or self-care (01) ==
LOC: ER 07:11
DX: R10.30 Lower abdominal pain, unspecified (principal); I10 Essential (primary) hypertension; Z79.82 Long term (current) use of aspirin; Z91.048 Other nonmedicinal substance allergy status
CPT/HCPCS: 36415; 74176; 80053; 81003; 81015; 83690; 85025; 87086; 87088; 99284

== ENCOUNTER 2022-09-27 07:54 | Emergency (ER) | payer MEDICARE, OTHER ==
--- OUTSIDE RECORDS SUMMARY | 2022-09-27 07:58 | XMS REPORT | Continuity of Care Document ---
:1955 Author Organization [facility] t Address [address] [facility] [address] [place] [address] Care Team Providers Name Role Phone Meagan Morris Attending Clinician Unavailable Tash Chatman Attending Clinician Unavailable Aparna Doss Attending Clinician Jazmin Attending Clinician Unavailable Jazmin Admitting Clinician Unavailable Payers Payer Name Policy Type Policy Number Effective Date Expiration Date S [facility] [id number] (MEDICARE 00:00:00 REPLACEMENT HMO) Problems Condition Condition Condition Status Onset Resolution Last Treating Co mments Source Name Details Category Date Date Treatment Clinician Date FH: Family Problem Common Diabetes history of Spir it mellitus diabetes - CHI mellitus [facility] Hypertensi Hypertensi Problem C ommon on on [facility] Obesity Obesity Problem Common [facility] Hematochez Hematochez Problem C ommon ia ia [facility] Hyperlipid Hyperlipid Problem C ommon emia emia [facility] History of History of Problem C ommon transient transient Spir it ischemic ischemic - CHI attack attack [facility] Gastro-eso Gastro-eso Problem C ommon phageal phageal Spirit reflux reflux - CHI disease disease [facility] esophagiti Me dical [facility] [id number] Abnormal Problem Comm on mammogram Spirit of left - CHI breast [facility] Body mass Adult BMI Problem Com mon index 32.0-32.9 [facility] 30.00 to kg/sq m - CHI 34.99 [facility] [id number] Bloating Problem Comm on symptom [facility] [id number] Osteoarthr Problem Co mmon itis of [facility] spine with - [facility] radiculopa [facility] cervical [facility] [id number] Exposure Problem Comm on to the flu [facility] [id number] Exposure Problem Comm on to Spirit pneumonia - [facility] [id number] Fever and Problem Com mon chills [facility] [id number] Primary Problem Comm on osteoarthr [facility] itis of [facility] right knee [facility] Essential Essential Problem Com mon hypertensi (primary) Spi rit on hypertensi - CHI on [facility] [id number] BMI Problem Common 30.0-30.9, [facility] adult [facility] Allergies, Adverse Reactions, Alerts Allergy Allergy Status Severity Reaction(s) Onset Inactive Treating Comm ents Source Name Type Date Date Clinician 463 Drug Active hives Common allergy [facility] Social History Social Habit Start Date Stop Date Quantity Comments Source Sex Assigned At Com mon [facility] History of Tobacco Use Co mmon [facility] Smoking Status Start Date Stop Date Source Never Smoker Common [facility] Medications Ordered Filled Start Stop Current Ordering Indication Dosage Frequency Signature Comments Components Source Medication Medication Date Date Medication? Clinician (SIG) Name Name Oseltamivir Oseltamivir Yes Tash 1 capsule Common Phosphate Phosphate 2-11 [place] Spir it 00:00: - CHI 00 [facility] Lisinopril Lisinopril Yes Tash take 1 Common [place] tablet by Spirit mouth - CHI every day. [facility] Atorvastati Atorvastati Yes Tash TAKE 1 Common n Calcium n Calcium [place] TABLET BY Spirit MOUTH ONCE - CHI A DAY [facility] Lisinopril Lisinopril No QD Lisinopril [...] tablet Com mon Adult Low Adult Low 04-17 [place] Spi rit Dose Dose 00:00 - CHI :00 [facility] Immunizations Ordered Immunization Filled Immunization Date Status Commen ts Source Name Name FLUZONE HIGH DOSE FLUZONE HIGH DOSE 2022-03-29 Completed Common Spirit OVER 65 OVER 65 09:29:00 - [facility] Flucelvax - Flucelvax - 2018-04-17 Completed Common Spiri t multidose vial multidose vial 14:28:00 - [facility] Flucelvax - Flucelvax - 2018-04-17 Completed Common Spiri t multidose vial multidose vial 14:28:00 - [facility] Flucelvax - Flucelvax - 2018-04-17 Completed Common Spiri t multidose vial multidose vial 14:28:00 - [facility] Flucelvax - Flucelvax - 2018-04-17 Completed Common Spiri t multidose vial multidose vial 14:28:00 - [facility] Flucelvax - Flucelvax - 2018-04-17 Completed Common Spiri t multidose vial multidose vial 14:28:00 - [facility] Flucelvax - Flucelvax - 2018-04-17 Completed Common Spiri t multidose vial multidose vial 14:28:00 - [facility] Flucelvax - Flucelvax - 2018-04-17 Completed Common Spiri t multidose vial multidose vial 14:28:00 - [facility] Flucelvax - Flucelvax - 2018-04-17 Completed Common Spiri t multidose vial multidose vial 14:28:00 [facility] Vital Signs Vital Name Observation Time Observation Value Comments Source respiratory rate 2022-02-24 10:00:00 16 /min Comm on [facility] blood pressure 2022-02-24 10:00:00 136 mm[Hg] Common [facility] - systolic [facility] blood pressure 2022-02-24 10:00:00 82 mm[Hg] [facility] - diastolic [facility] height 2022-02-24 10:00:00 61 [in_i] [facility] weight 2022-02-24 10:00:00 158.2 [lb_av] [facility] temperature 2022-02-24 10:00:00 98.6 [degF] [facility] bmi 2022-02-24 10:00:00 29.89 kg/m2 [facility] oximetry 2022-02-24 10:00:00 99 % [facility] height 2022-02-24 10:40:00 61 [in_i] [facility] weight 2022-02-24 10:40:00 158.2 [lb_av] [facility] temperature 2022-02-24 10:40:00 98.6 [degF] [facility] bmi 2022-02-24 10:40:00 29.89 kg/m2 Common [facility] oximetry 2022-02-24 10:40:00 99 % Common S [facility] respiratory rate 2022-02-24 10:40:00 16 /min Comm on [facility] blood pressure 2022-02-24 10:40:00 136 mm[Hg] Common [facility] - systolic [facility] blood pressure 2022-02-24 10:40:00 82 mm[Hg] Common [facility] - diastolic [facility] Procedures This patient has no known procedures. Encounters Start End Encounter Admission Attending Care Care Encounter Source Date/Time Date/Time Type Type Clinicians Facility Department ID 2021-12-28 Outpatient Morris, STLMLC STLMLC [id number] Common 08:17:00 [facility] 2021-12-26 Outpatient Morris, STLMLC STLMLC [id number] Common 11:41:00 [facility] 2021-12-16 Outpatient Morris, STLMLC STLMLC [id number] Common 10:07:00 [facility] 2021-06-29 Outpatient Lurdes, STLMLC STLMLC [id number] Common 11:06:56 Tash [id number] [facility] 2022-07-10 2022-07-10 CAV Aparna [id number] CLAC [id number] [facility] 14:30:00 15:30:00 [place] [id number] [id number] 2022-06-30 2022-06-30 Outpatient Og[place]_L DMG DM [id number] [facility] 00:00:00 00:00:00 [id number] [facility] 2022-04-17 2022-04-17 Outpatient DMG DMG [id number] [facility] 00:00:00 00:00:00 [id number] [facility] 2022-03-29 2022-03-29 OFFICE STLMLC STLMLC [id number] Co mmon 00:00:00 00:00:00 VISIT Spirit ESTAB PT - CHI LEVEL 1 [facility] 2022-02-24 2022-02-24 OFFICE STLMLC STLMLC [id number] Co mmon 00:00:00 00:00:00 VISIT Spirit ESTAB PT - CHI LEVEL 4 [facility] 2022-02-24 2022-02-24 (MCR WELL) STLMLC STLMLC [id number] Common 00:00:00 00:00:00 Medicare Spiri t Wellness CHI [facility] 2022-02-24 2022-02-24 (TEL) STLMLC STLMLC [id number] Co mmon 00:00:00 00:00:00 [facility] 2021-12-22 2021-12-22 (TEL) STLMLC STLMLC [id number] Co mmon 00:00:00 00:00:00 [facility] 2020-02-26 2020-02-26 Outpatient STLMLC STLMLC [id number] Common 00:00:00 00:00:00 [facility] 2019-07-31 2019-07-31 [facility] [id number] Common 08:00:00 08:00:00 [facility] 2019-07-15 2019-07-15 [facility] [id number] Common 15:00:00 15:00:00 [facility] 2019-02-05 2019-02-05 [facility] [id number] Common 09:32:00 09:32:00 [facility] [facility] 2019-01-31 2019-01-31 [facility] [id number] Common 15:24:00 15:24:[address] [facility] [address] [facility] 2019-01-28 2019-01-28 [facility] [id number] Common 08:00:00 08:00:[address] [facility] [facility] 2018-09-24 2018-09-24 [facility] [id number] Common 08:30:00 08:30:[address] [facility] 2018-07-12 2018-07-12 [facility] [id number] Common 09:10:00 09:10:[address] [facility] 2018-03-20 2018-03-20 [facility] [id number] Common 15:38:00 15:38:[address] [facility] 2018-03-04 2018-03-04 [facility] [id number] Common 14:49:00 14:49:[address] [facility] 2018-03-04 2018-03-04 [facility] [id number] Common 09:00:00 09:00:[address] [facility] 2018-02-14 2018-02-14 [facility] [id number] Common 08:42:00 08:42:[address] [facility] 2018-02-05 2018-02-05 [facility] [id number] Common 11:31:00 11:31:[address] [facility] 2018-02-01 2018-02-01 [facility] [id number] Common 09:00:00 09:00:[address] [facility] 2018-01-24 2018-01-24 [facility] [id number] Common 11:39:00 11:39:[address] [facility] 2017-10-04 2017-10-04 [facility] [id number] Common 15:15:00 15:15:[address] [facility] 2017-09-12 2017-09-12 [facility] [id number] Common 14:06:00 14:06:00 [facility] 2017-09-07 2017-09-07 Outpatient Christine Barajas [id number] Common 11:00:00 11:00:00 [facility] Results This patient has no known results.
--- NOTE | 2022-09-27 08:29 | RAD REPORT ---
EXAM DESCRIPTION: CT - Abdomen Pelvis Wo Contrast - 09/27/2022 8:19 am CLINICAL HISTORY: Abdominal pain COMPARISON: May 2022 TECHNIQUE: Computed axial tomography of the abdomen and pelvis was obtained. IV and oral contrast we re not requested. All CT scans are performed using dose optimization technique as appropriate and may include automated exposure control or mA/KV adjustment according to patient size. FINDINGS: The evaluation of solid organs, vessels and bowel is limited secondary to the lack of con trast administration. The liver, spleen, pancreas, adrenals and kidneys appear grossly normal. There is no evidence of diverticulitis. 2 centimeter right ovarian/paraovarian cyst unchanged likely benign IMPRESSION: No acute abnormality is displayed.
[2022-09-27 08:35] LABS: Absolute Lymphocytes (CBC) 1.5 K/uL (0.7-4.9); Hematocrit 41.9 % (36.0-45.0); Lymphocytes % 31.5 % (15.3-44.8); MCV 91.8 fL (80-100); MPV 8.7 fL (7.6-11.3); RBC Red Blood Cell Count 4.56 M/uL (3.86-4.86)
[2022-09-27 08:44] LABS: Specific Gravity 1.014 (1.005-1.030); Urine Bacteria None Seen /HPF (<20); Urine Bilirubin NEGATIVE (Negative); Urine Blood 1+ (Negative); Urine Clarity Clear (Clear); Urine Color Light-Yellow (Yellow); Urine Glucose NEGATIVE (Negative); Urine Protein NEGATIVE (Negative); Urine Urobilinogen Normal (Normal)
[2022-09-27 08:59] LABS: Albumin 4.2 g/dL (3.4-5.0); Bilirubin Total 0.8 mg/dL (0.2-1.0); Potassium 3.7 mEq/L (3.5-5.1); Protein, Total 8.3 g/dL (6.4-8.2)
[2022-09-27] MEDS ORDERED: KETOROLAC 30 MG/ML INJ ONE (09:35)
[2022-09-27] MEDS ORDERED: NA CHLORIDE 0.9% 500 ML ONE (09:35)
--- NOTE | 2022-09-27 10:09 | EDPHYS ---
Physician Documentation [facility] Name: Joan Atkins Age: 66 yrs Sex: Female : 1955 Arrival Date: 09/27/2022 Time: 07:54 Bed 8 Private MD: ED Physician Rey Ortiz HPI: 09/27 08:22 This 66 yrs old Female presents to ER via Ambulatory with complaints of Pain, kb PAIN ON LEFT SIDE. 08:22 The patient presents with abdominal pain in the left lower quadrant. Onset: The kb symptoms/episode began/occurred 3 day(s) ago. The symptoms radiate to left back. Associated signs and symptoms: Pertinent positives: constipation, Pertinent negatives: nausea, vomiting, and diarrhea, fever. The symptoms are described as constant. Modifying factors: The symptoms are alleviated by nothing, the symptoms are aggravated by nothing. Severity of pain: At its worst the pain was moderate in the emergency department the pain is unchanged. The patient has not experienced similar symptoms in the past. The patient has not recently seen a physician. Historical: - Allergies: 08:03 Iodine; ss - PMHx: 08:03 Hyperlipidemia; Hypertension; ss - Immunization history:: Adult Immunizations up to date. - Social history:: Smoking status: Patient denies any tobacco usage or history of. Patient uses Patient/guardian denies using alcohol. ROS: 08:20 Constitutional: Negative for fever, chills, and weight loss. kb 08:20 Abdomen/GI: Positive for abdominal pain, constipation, Negative for nausea, vomiting, and diarrhea. 08:20 All other systems are negative. Exam: 08:20 Constitutional: This is a well developed, well nourished patient who is awake, alert, kb and in no acute distress. Head/Face: Normocephalic, atraumatic. ENT: Moist Mucous membranes Cardiovascular: Regular rate and rhythm with a normal S1 and S2. No gallops, murmurs, or rubs. No pulse deficits. Respiratory: Respirations even and unlabored. No increased work of breathing. Talking in full sentences Skin: Warm, dry with normal turgor. Normal color. MS/ Extremity: Pulses equal, no cyanosis. Neurovascular intact. Full, normal range of motion. Neuro: Awake and alert, GCS 15, oriented to person, place, time, and situation. Moves all extremities. Normal gait. 08:20 Abdomen/GI: Inspection: abdomen appears normal, Bowel sounds: normal, Palpation: soft, in all quadrants, moderate abdominal tenderness, in the left lower quadrant. Vital Signs: 08:32 BP 151 / 78; Pulse 66; Resp 18; Temp 98.5(O); Pulse Ox 100% on R/A; Weight 74.84 kg; ld1 Height 5 ft. 2 in. ; Pain 6/10; 09:34 BP 133 / 73; Pulse 81; Resp 18; Pulse Ox 99% on R/A; Pain 8/10; ld1 10:54 BP 131 / 74; Pulse 81; Resp 18; Pulse Ox 99% on R/A; Pain 6/10; ld1 08:32 Body Mass Index 30.18 (74.84 kg, 157.48 cm) ld1 08:32 Pain Scale: Adult ld1 09:34 Pain Scale: Adult ld1 10:54 Pain Scale: Adult ld1 MDM: 07:58 Patient medically screened. kb 08:21 Data reviewed: vital signs, nurses notes. kb 08:21 Differential diagnosis: bowel obstruction, diverticulitis, non-specific abd pain, kb Pyelonephritis, Ureterolithiasis, urinary tract infection. 10:08 Counseling: I had a detailed discussion with the patient and/or guardian regarding: the kb historical points, exam findings, and any diagnostic results supporting the discharge/admit diagnosis, lab results, radiology results, the need for outpatient follow up, a family practitioner, a professor of art history, to return to the emergency department if symptoms worsen or persist or if there are any questions or concerns that arise at home. 09/27 08:03 Order name: CBC with Diff; Complete Time: 08:48 kb 09/27 08:03 Order name: CMP; Complete Time: 09:01 kb 09/27 08:03 Order name: Lipase; Complete Time: 09:01 kb 09/27 08:03 Order name: Urinalysis w/ reflexes; Complete Time: 08:46 kb 09/27 08:16 Order name: Abdomen ; Complete Time: 08:29 EDMS 09/27 08:03 Order name: IV Saline Lock; Complete Time: 08:32 kb 09/27 08:03 Order name: Labs collected and sent; Complete Time: 08:32 kb Administered Medications: 09:33 Drug: NS 0.9% IV 500 ml Route: IV; Rate: bolus; Site: left antecubital; ld1 09:33 Drug: Ketorolac IVP 15 mg Route: IVP; Site: left antecubital; ld1 Disposition: 17:17 Co-signature as Attending Physician, Rey Ortiz MD I reviewed the patient's care rn provided by the Advanced Practice Provider and agree with the diagnosis and treatment plan. Disposition Summary: 09/27/22 10:08 Discharge Ordered Location: Home kb Condition: Stable kb Diagnosis - Lower abdominal pain, unspecified kb Followup: kb - With: Emergency Department - When: As needed - Reason: Worsening of condition Followup: kb - With: Private Physician - When: 2 - 3 days - Reason: Recheck today's complaints, Continuance of care, Re-evaluation by your physician Discharge Instructions: - Discharge Summary Sheet kb - Abdominal Pain, Adult, [id number] kb Forms: - Medication Reconciliation Form kb - Thank You Letter kb - Antibiotic Education kb - Prescription Opioid Use kb Prescriptions: - Diclofenac Sodium 75 mg Oral tablet,delayed release (DR/EC) - take 1 tablet by ORAL route 2 times per day As needed; 30 tablet; Refills: 0, kb Product Selection Permitted Signatures: Dispatcher [employer] EDNelda Montiel, LISW-C LISW-Ckb Rey Ortiz MD MD rn Smirch, Shelby, RN RN ss Sims, Lauren, RN RN ld1 Corrections: (The following items were deleted from the chart) 08:16 08:04 Abdomen Pelvis W Con+CT.RAD.BRZ ordered. EDMS ED
--- NOTE | 2022-09-27 10:09 | ER ---
Nurse's Notes [facility] Name: Joan Atkins Age: 66 yrs Sex: Female : 1955 Arrival Date: 09/27/2022 Time: 07:54 Bed 8 Private MD: Diagnosis: Lower abdominal pain, unspecified Presentation: 09/27 08:03 Chief complaint: Patient states: LLQ pain that radiates down L thigh since Sunday. ss Coronavirus screen: Client denies travel out of the [place] in the last 14 days. Ebola Screen: Patient denies exposure to infectious person. Patient denies travel to an Ebola-affected area in the 21 days before illness onset. Initial Sepsis Screen: Does the patient meet any 2 criteria? No. Patient's initial sepsis screen is negative. Does the patient have a suspected source of infection? No. Patient's initial sepsis screen is negative. Risk Assessment: Do you want to hurt yourself or someone else? Patient reports no desire to harm self or others. Onset of symptoms was September 25, 2022. 08:03 Method Of Arrival: Ambulatory ss 08:03 Acuity: SOO 3 ss Historical: - Allergies: 08:03 Iodine; ss - PMHx: 08:03 Hyperlipidemia; Hypertension; ss - Immunization history:: Adult Immunizations up to date. - Social history:: Smoking status: Patient denies any tobacco usage or history of. Patient uses Patient/guardian denies using alcohol. Screenin:32 [facility] ED Fall Risk Assessment (Adult) History of falling in the last 3 months, ld1 including since admission No falls in past 3 months (0 pts). Abuse screen: Denies threats or abuse. Denies injuries from another. Nutritional screening: No deficits noted. Tuberculosis screening: No symptoms or risk factors identified. Assessment: 08:04 Reassessment: Pt ambulated to restroom with steady gait. ss 08:32 General: Appears in no apparent distress. comfortable, Behavior is calm, cooperative, ld1 appropriate for age. Pain: Complains of pain in left lower quadrant Pain radiates to left leg Pain currently is 6 out of 10 on a pain scale. Quality of pain is described as aching, Pain began 1 week Is continuous. Neuro: Level of Consciousness is awake, alert, obeys commands, Oriented to person, place, time, situation. Cardiovascular: Capillary refill < 3 seconds Patient's skin is warm and dry. Rhythm is sinus rhythm. Respiratory: Airway is patent Respiratory effort is even, unlabored. GI: Abdomen is round non-distended, Reports lower abdominal pain. : No signs and/or symptoms were reported regarding the genitourinary system. EENT: No signs and/or symptoms were reported regarding the EENT system. Derm: No signs and/or symptoms reported regarding the dermatologic system. Musculoskeletal: No signs and/or symptoms reported regarding the musculoskeletal system. 09:34 Reassessment: Patient appears in no apparent distress at this time. Patient and/or ld1 family updated on plan of care and expected duration. Pain level reassessed. C/O LLQ. Vital Signs: 08:32 BP 151 / 78; Pulse 66; Resp 18; Temp 98.5(O); Pulse Ox 100% on R/A; Weight 74.84 kg; ld1 Height 5 ft. 2 in. ; Pain 6/10; 09:34 BP 133 / 73; Pulse 81; Resp 18; Pulse Ox 99% on R/A; Pain 8/10; ld1 10:54 BP 131 / 74; Pulse 81; Resp 18; Pulse Ox 99% on R/A; Pain 6/10; ld1 08:32 Body Mass Index 30.18 (74.84 kg, 157.48 cm) ld1 08:32 Pain Scale: Adult ld1 09:34 Pain Scale: Adult ld1 10:54 Pain Scale: Adult ld1 ED Course: 07:56 Patient arrived in ED. ts1 07:56 Nelda Agustin FNP-C is [facility]. kb 07:56 Rey Ortiz MD is Attending Physician. kb 08:03 Triage completed. ss 08:03 Arm band placed on right wrist. ss 08:08 Lashae Huff, MAXIMINO is Primary Nurse. ld1 08:21 Abdomen In Process Unspecified. EDMS 08:32 Patient has correct armband on for positive identification. Placed in gown. Bed in low ld1 position. Call light in reach. Side rails up X2. court monitor on. Pulse ox on. NIBP on. Door closed. Noise minimized. 08:32 Urinalysis w/ reflexes Sent. ld1 08:32 No provider procedures requiring assistance completed. Inserted saline lock: 20 gauge ld1 in right antecubital area, using aseptic technique. Blood collected. 10:54 IV discontinued, intact, bleeding controlled, No redness/swelling at site. ld1 Administered Medications: 09:33 Drug: NS 0.9% IV 500 ml Route: IV; Rate: bolus; Site: left antecubital; ld1 09:33 Drug: Ketorolac IVP 15 mg Route: IVP; Site: left antecubital; ld1 Medication: 10:55 VIS not applicable for this client. ld1 Outcome: 10:08 Discharge ordered by . stephany 10:54 Discharged to home ambulatory. ld1 10:54 Condition: stable 10:54 Discharge instructions given to patient, Instructed on discharge instructions, follow up and referral plans. medication usage, Demonstrated understanding of instructions, follow-up care, medications, Prescriptions given X 1. 10:55 Patient left the ED. ld1 Signatures: Dispatcher [employer] EDMS Nelda Agustin, ICD 9 CODER-C ICD 9 CODER-Carmen Finch RN RN Lashae Huff RN RN ld1 Claudia Thayer, AMARA PAS ts1
[2022-09-27 11:09] VITALS: TEMP 98.5
[2022-09-27 11:10] VITALS: O2SAT 99
[2022-09-27 11:12] VITALS: BP 131/74
== END 2022-09-27 10:55 | disposition home or self-care (01) ==
LOC: ER 07:54
DX: R10.32 Left lower quadrant pain (principal); I10 Essential (primary) hypertension; E78.5 Hyperlipidemia, unspecified; Z91.048 Other nonmedicinal substance allergy status
CPT/HCPCS: 85025; 81001; 36415; 83690; 80053; 74176; J7040; 96374; 99285

== ENCOUNTER 2023-08-13 09:57 | Day surgery (SDC) | payer MEDICARE ==
[2023-08-10 09:03] LABS: Absolute Basophils 0.1 K/uL (0-0.5); Absolute Eosinophils 0.1 K/uL (0-0.5); Absolute Lymphocytes (CBC) 1.8 K/uL (0.7-4.9); Basophils % 1.4 % (0-1.3); Eosinophils % 2.1 % (0-4.4); Hematocrit 42.4 % (36.0-45.0); MCV 91.8 fL (80-100); MPV 8.7 fL (7.6-11.3); Platelets 317 thou/uL (152-406); RBC Red Blood Cell Count 4.61 M/uL (3.86-4.86)
--- NOTE | 2023-08-10 09:21 | RAD REPORT ---
EXAM DESCRIPTION: RAD - Chest Pa And Lat (2 Views) - 08/10/2023 9:06 am CLINICAL HISTORY: pre op anoscopy, procto, poss hemorrhoidectomy Chest pain. COMPARISON: Chest Single View dated 08/30/2018; CHEST SINGLE VIEW dated 08/21/2014 FINDINGS: The lungs are clear. The heart is normal in size. No displaced fractures. IMPRESSION: No acute or concerning finding suspected.
[2023-08-13] MEDS ORDERED: LIDOCAINE 2% MPF 5 ML VIAL ONE (10:08)
[2023-08-13] MEDS ORDERED: propofoL 200 MG/20 ML VIAL IV ONE (10:08)
[2023-08-13] MEDS ORDERED: dexAMETHasone 10 MG/ML VIAL ONE (10:08)
[2023-08-13] MEDS ORDERED: MIDAZOLAM HCL 2 MG/2 ML INJ ONE (10:08)
[2023-08-13] MEDS ORDERED: FENTANYL CITR 100 MCG/2 ML ONE (10:08)
[2023-08-13] MEDS ORDERED: KETOROLAC 30 MG/ML INJ ONE (10:08)
[2023-08-13] MEDS ORDERED: ONDANSETRON 4 MG/2 ML VIAL ONE (10:08)
[2023-08-13] MEDS: Ringers Lactate 1,000 ML IV ONE (11:21)
[2023-08-13] MEDS: CEFAZOLIN SODIUM 1 GM/VIAL ONE (11:39)
--- NOTE | 2023-08-13 12:26 | P.BOP ---
Preoperative diagnosis: thrombosed prolapsed internal and tender external hemorrhoids Postoperative diagnosis: same Primary procedure: EUA, anoscopy, rigid proctoscopy Secondary procedure: Internal hemorrhoidectomy ( anterior) Other procedure(s): External hemorrhoidectomy ( posterior) Estimated blood loss: <10cc Specimen: hemorroids x 2 Findings: as above Anesthesia: General Transferred to: Recovery Room Condition: Good
[2023-08-13] MEDS: HYDROCODONE/APAP 5/325 MG TAB ONE (13:20)
[2023-08-13 13:21] VITALS: O2SAT 99
[2023-08-13 14:26] VITALS: BP 123/74; TEMP 97.5
--- NOTE | 2023-08-14 09:22 | OP ---
Surgeon: Sky Posadas MD Preoperative Diagnosis: Thrombosed prolapsed internal and tender external hemorrhoids. Postoperative Diagnosis: Thrombosed prolapsed internal and tender external hemorrhoids. Procedures: Exam under anesthesia; anoscopy; rigid proctoscopy; internal hemorrhoidectomy, anterior; external hemorrhoidectomy, posterior. Estimated Blood Loss: Less than 10 cc. Specimen: Hemorrhoids x2. Findings: The patient has multiple hemorrhoids, but there is 1 anterior and posterior. The anterior one is prolapsing from inside is internal hemorrhoid with bleeding and also inflammation and then tee brooks has an external hemorrhoid in posterior area also inflamed with polypoid-like shape. Anesthesia: General plus local. Complications: None. Indications: This is a case of a 67-year-old patient who comes to us with 2 lumps on the perianal re gion, tender, bleeding. Given pain and discomfort, she tried cream, sitz bath. She tried change in bowel habits, change in social habits and is still having the discomfort, so she was sent to us for h emorrhoidectomy. The benefits, alternatives, and risks of EUA, anoscopy, proctoscopy, possible hemor rhoidectomy were fully explained to the patient, which include, but not limited to infection, bleedin g, damage to adjacent structures, anesthesia complication, recurrence, PR, and even . She also understands this may not relieve symptoms. She might need more than one surgical intervention. She also understands the importance of losing weight, sitz baths, no heavy lifting. We identified opport unities to diminish the chance of hemorrhoidal pain exacerbation. She understood, signed a consent. Description Of Procedure: The patient was brought to the operating room, placed in supine position, anesthesia was done without complication. The patient was placed in lithotomy position with proper p rotection. After that, a time-out was called. Rectal examination was done followed by a rigid proct oscopy. Already we identified 2 areas that we might have to the address, which is the one mentioned above. We went on to about 15 cm. We did not see any masses in that area. There were internal and external hemorrhoids. There are 2 specific that are bigger, bleeding, friable and those are the ones we may have to remove. So after that, we put an anoscope with a window on the side. We confirmed t he findings, we have internal hemorrhoid coming from about 11 o'clock, which is prolapsed, is friable , tender, and bleeding and that area will be removed. The patient has some other internal and garbage collector al hemorrhoids, but at this moment, there are small and they are nonthrombosed, but she also has an e xternal hemorrhoid and looked like a polypoid lesion involved with hemorrhoid. That area looks also suspicious not only for hemorrhoids, but also for a lump, so that area will be also excised. Each ar ea was done individually using the same technique, which consisted of injecting local anesthetic, ope alec the anoderm, the hemorrhoidal plexus from the sphincter and after we made sure that i t is safe, we proceeded to transect the hemorrhoidal plexus with a Harmonic scalpel, made sure the sp hincter once again is preserved and then we closed the anoderm with 3-0 chromic. The same was done w ith the posterior hemorrhoidal tissue. No bleeding. Surgicel was placed previously to help with hem ostasis. Once we checked, no bleeding at this moment, no hematomas. At that moment, I proceeded to remove the anoscope. I sent the patient to recovery in stable condition. Sponge count and instrumen t count were correct. ALEENA/HEATHER Voice ID: [id number] Report ID: [id number]
== END 2023-08-13 13:53 | disposition home or self-care (01) ==
LOC: OR 09:57
PROVIDERS: ATTEND Surgery
PROC: 06BY4ZC Excision of Hemorrhoidal Plexus, Percutaneous Endoscopic Approach (ICD-10-PCS; 2023-08-13)
PROC: 0DJD8ZZ Inspection of Lower Intestinal Tract, Via Natural or Artificial Opening Endoscopic (ICD-10-PCS; principal; 2023-08-13 12:00)
DX: K64.5 Perianal venous thrombosis (principal); K64.9 Unspecified hemorrhoids; K62.89 Other specified diseases of anus and rectum; I10 Essential (primary) hypertension; Z86.73 Personal history of transient ischemic attack (TIA), and cerebral infarction without residual deficits
CPT/HCPCS: 93005; 85025; 80048; 36415; 88304; 71046; 45300; 46260; J2704; J2001; J2250; J3010; J1100; J2405; J7120; J0690